=== PATIENT | male | born 2000 | race Caucasian/White ===

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

== ENCOUNTER 2019-05-07 15:24 | Emergency (ER) | payer OTHER ==
[~2019-05-07] VITALS: Ht 175.3 cm; Wt 121.6 kg
[2019-05-07 16:05] VITALS: BP 127/67
== END 2019-05-07 17:14 | disposition home or self-care (01) ==
LOC: ED 17:05
DX: H66.92 Otitis media, unspecified, left ear (principal)
CPT/HCPCS: 99283